=== PATIENT | female | born 1960 | race Caucasian/White ===

== ENCOUNTER 2018-01-10 06:05 | Emergency (ER) | payer OTHER ==
[2018-01-10] MEDS ORDERED: TDAP ADULT 0.5 ML INJ (BOOSTRIX) IM ONE (06:18)
[2018-01-10] MEDS ORDERED: IBUPROFEN 600 MG TAB PO ONE (06:18)
--- NOTE | 2018-01-10 06:22 | EDPHY ---
H & P Time Seen by Provider: 01/10/18 06:19 HPI/ROS: CC: finger injury HPI: This 57-year-old female presents to the emergency department after a 15 lb weight fell on the 5th digit of her left hand approximately 30 min ago while working out at the gym. There is a laceration distally and she thinks finger is broken. No other injury. She is right handed. REVIEW OF SYSTEMS: No recent illness. ROS negative. Past Medical/Surgical History: PMH: shingles, WNV PSH: FH: not pertinent to today's visit NKDA Meds: None Social History: Denies tobacco products, no significant ETOH use, no marijuana Last Tetanus was 2008 Smoking Status: Never smoked Physical Exam: GEN: alert and oriented x 3, in mod distress Skin: normal for ethnicity, warm and dry, no rashes HEENT: NC/AT, PERRL, EOMI, mucosa moist Neck: supple Cardio: normal peripheral perfusion Lungs: non-labored respirations Musculoskeletal: the left 5th digit has a 1 cm stellate laceration to the distal/medial aspect with contused tissue. Part of the fingernail and possible a small sliver of skin appear to be missing. Hypesthesia at finger tip. Motor intact. Constitutional: Initial Vital Signs Temperature (C) 97.7 F 01/10/18 06:14 Heart Rate 82 01/10/18 06:14 Respiratory Rate 16 01/10/18 06:14 Blood Pressure 136/92 H 01/10/18 06:14 O2 Sat (%) 97 01/10/18 06:14 O2 Delivery Mode Room Air Allergies/Adverse Reactions: Sulfa (Sulfonamide Antibiotics) Allergy (Unknown, Verified 01/10/18 06:13) Home Medications: Medication Instructions Recorded Cephalexin 500 mg PO QID 7 Days #28 tablet 01/10/18 ED Images - Extremities Fingertip Front/Back: 1 - laceration with contused tissue 2 - lacertion with contused tissue Medical Decision Making - Diagnostics Imaging Results: Мария fracture of distal left fifth digit with STS Imaging: I viewed and interpreted images myself Procedures: Procedure: Laceration repair. Verbal consent was obtained from the patient. The 1cm stellate laceration on the distal medial aspect of the left 5th digit was anesthetized by digital block using 3ml of 2% plain lidocaine. The wound was irrigated, draped and explored to its base with a gloved finger. There were no deep structures involved. No tendon injury was identified. No nail bed injury identified. The wound was repaired with #5 - 4.0 Prolene. The wound repair was acceptable and 3 of the sutures were placed through the nail, effectively trephinating the nail although no subungual hematoma was noted. There was contused tissue on the medial aspect of the finger pad. The procedure was performed by myself and took 15 minutes. ED Course/Re-evaluation: The patient was seen and examined. Vital signs reviewed. An x-ray showed a distal tuft fracture of the left 5th digit. This is an open fracture. Patient had her tetanus immunization updated. She was given ibuprofen for pain. She was given the 1st dose of Keflex. The laceration was repaired. Please refer to the procedure note. A sterile dressing was placed. Discharge instructions reviewed with patient. All questions answered. Patient does have an appointment with an orthopedic provider in 2 days for a knee injury but I have advised her to call this morning and ask if she needs to see a hand specialist within the same group. She should see them within 2 days as well. Differential Diagnosis: Considerations include but not limited to: laceration, мария fracture, open fracture, nail bed injury, tendon injury - Data Points Medications Given: Discontinued Medications Cephalexin HCl (Keflex) 500 mg PO EDNOW ONE PRN Reason: Protocol Stop: 01/10/18 06:39 Last Admin: 01/10/18 06:41 Dose: 500 mg Diphtheria/Tetanus/Acell Pertussis (Boostrix) 0.5 ml IM .ONCE ONE Stop: 01/10/18 06:19 Last Admin: 01/10/18 06:28 Dose: 0.5 ml Ibuprofen (Motrin) 600 mg PO EDNOW ONE Stop: 01/10/18 06:19 Last Admin: 01/10/18 06:27 Dose: 600 mg Departure - Departure Disposition: Home, Routine, Self-Care Clinical Impression: Fracture of distal phalanx of finger of left hand Condition: Good Instructions: Finger Fracture (ED) Additional Instructions: Call [facility] first thing this morning and tell them you have an open tuft's fracture. They may need to extend the appointment you already have scheduled for (2 days from now). Keep wound clean and dry. Do not soak finger. Tylenol or Motrin for pain. Take the antibiotic (Cephalexin also known as Keflex) as directed. Return to the ED if any further problems or concerns. Referrals: Patient,NotPresent [Primary Care Provider] - As per Instructions Prescriptions: Cephalexin 500 mg PO QID 7 Days #28 tablet
[2018-01-10] MEDS ORDERED: CEPHALEXIN 500 MG CAP PO ONE (06:38)
[2018-01-10 07:41] VITALS: BP 123/89
== END 2018-01-10 07:40 | disposition home or self-care (01) ==
LOC: CED 06:05
PROC: 0HQGXZZ Repair Left Hand Skin, External Approach (ICD-10-PCS; principal; 2018-01-10)
DX: S62.637A Displaced fracture of distal phalanx of left little finger, initial encounter for closed fracture (principal); S61.217A Laceration without foreign body of left little finger without damage to nail, initial encounter; Z23 Encounter for immunization; W20.8XXA Other cause of strike by thrown, projected or falling object, initial encounter; Y92.39 Other specified sports and athletic area as the place of occurrence of the external cause; Y99.8 Other external cause status; Y93.89 Activity, other specified
CPT/HCPCS: 73140-PO; L3925

== ENCOUNTER → 2018-07-27 | Outpatient (CLI) | payer OTHER | LOC: FIMAGING 08:55 | PROVIDERS: ATTEND Internal Medicine Endocrinology, Diabetes & Metabolism | DX: E05.90 Thyrotoxicosis, unspecified without thyrotoxic crisis or storm (principal); G47.00 Insomnia, unspecified; R00.2 Palpitations ==